=== PATIENT | male | born 1995 | race Caucasian/White ===

== ENCOUNTER 2016-06-20 12:33 | Emergency (ER) | payer SELFPAY ==
[2016-06-24] MEDS ORDERED: PERCOCET 5-3251 TAB PO (11:00)
[2016-06-24] MEDS ORDERED: HYDROCODONE-APA1 TAB PO (11:01)
[2016-06-25 13:57] VITALS: BMI 23.6
== END 2016-06-20 15:30 | disposition home or self-care (01) ==
LOC: D.ER 12:33
DX: S52.502A Unspecified fracture of the lower end of left radius, initial encounter for closed fracture (principal); W19.XXXA Unspecified fall, initial encounter; Y93.89 Activity, other specified; Y92.89 Other specified places as the place of occurrence of the external cause; R11.2 Nausea with vomiting, unspecified

== ENCOUNTER 2016-06-25 05:42 | Day surgery (SDC) | payer SELFPAY ==
[~2016-06-25] VITALS: Ht 175.3 cm; Wt 72.6 kg
--- NOTE | ~2016-06-25 | OP ---
PATIENT NAME: LAW MAGAÑA MEDICAL RECORD: [id number] :89 [facility]ATION:[facility] ADMISSION DATE: SURGEON: LUH BOWLING MD DATE OF OPERATION: 06/25/2016 PREOPERATIVE DIAGNOSIS: Left distal radius fracture -- volar Santos's. POSTOPERATIVE DIAGNOSIS: Left distal radius fracture -- volar Santos's. PROCEDURE: Open reduction and internal fixation of left wrist. SURGEON: Luh Bowling MD. ANESTHESIA: General. INTRAOPERATIVE COMPLICATIONS: None. SUMMARY OF PATHOLOGIC FINDINGS: The patient had an intra-articular split of the volar Santos's fracture that was well suited for a volar plate. OPERATIVE SUMMARY IN DETAIL: After obtaining the appropriate preoperative orthopedic surgery consents as well as anesthetic consultation, evaluation and clearance, the patient was brought to the operating room and placed on the operating table in supine position. After adequate general laryngeal mask airway was administered, tourniquet was placed about the proximal aspect of the right upper extremity. Right upper extremity was then prepped and draped in routine sterile fashion. The arm was elevated and exsanguinated, tourniquet inflated to 250 mmHg. Volar approach of Agus was utilized in a curvilinear fashion. Dissection was carried down to the flexor carpal radialis and then gentle dissection was carried down. The median nerve was identified and the carpal tunnel in its entirety was released for good exposure and release of potential nerve entrapment. Dissection was carried down to the actual distal radius itself. Reduction maneuver was performed. A volar plate from Michael was then applied. Serial and sequential drill and fill was done under fluoroscopic guidance resulting in anatomic holiness of the distal radius. Having completed this, the wound was copiously irrigated and closed using #1 Vicryl followed by 4-0 Prolene in running fashion. Sterile dressings were applied. The patient was awakened and taken to the recovery room in stable condition. All final needle and sponge counts were correct. TRANSINT:[id number] Voice Confirmation ID: [id number] DOCUMENT ID: [id number] LUH BOWLING MD CC: [id number] DICTATION DATE: 07/06/16[address]25 ST[address] LIGHT CLEANER: 07/07/16 0205 [facility] 06/25/16 [id number] [place] [address]
[~2016-06-25 05:42] MED LIST: HYDROCODONE-APA1 TAB PO; PERCOCET 5-3251 TAB PO
[2016-06-25 13:57] VITALS: BP 133/58; Ht 175.3 cm; Wt 72.6 kg
[2016-06-25] MEDS ORDERED: PERCOCET 10/3251 TA1 PO (16:08)
== END 2016-06-25 17:45 | disposition home or self-care (01) ==
LOC: D.OPS 05:42 → D.PAN 14:00 → D.OPS 14:00
DX: S52.562A Barton's fracture of left radius, initial encounter for closed fracture (principal)

== ENCOUNTER 2017-03-14 10:14 | Emergency (ER) | payer MEDICAID ==
[2016-06-25 13:57] VITALS: BMI 23.6
[~2017-03-14 10:14] MED LIST changes: +PERCOCET 10/3251 TA1 PO
== END 2017-03-14 12:36 | disposition home or self-care (01) ==
LOC: D.ER 10:14
DX: K52.9 Noninfective gastroenteritis and colitis, unspecified (principal); R11.10 Vomiting, unspecified

== ENCOUNTER 2018-01-15 17:35 | Emergency (ER) | payer MEDICAID ==
[~2018-01-15] VITALS: Ht 175.3 cm; Wt 75.0 kg
[2018-01-15 17:40] VITALS: Ht 175.3 cm; Wt 75.0 kg
[2018-01-15 18:31] LABS: APPEARANCE CLEAR (CLEAR); BILIRUBIN NEGATIVE (NEGATIVE); COLOR YELLOW (YELLOW); GLUCOSE NEGATIVE (NEGATIVE); KETONE LARGE mg/dL (NEGATIVE); NITRITE NEGATIVE (NEGATIVE); PROTEIN TRACE mg/dL (NEGATIVE); UROBILINOGEN NORMAL (NORMAL)
[2018-01-15 18:36] LABS: BASOPHILS 0.1 % (0-2); EOSINOPHILS 0 % (0-7); HEMATOCRIT 41.4 % (42.0-54.0); HEMOGLOBIN 15.4 g/dL (13.5-17.5); IMMATURE GRANULOCYTES 0.4 % (0-5); LYMPHOCYTES 5.6 % (15-50); MCH 32.4 pg (26.0-34.0); MCHC 37.2 g/dL (31.0-37.0); MCV 87.2 fL (80.0-100.0); MEAN PLATELET VOLUME 9.4 fL (7.4-10.4); MONOCYTES 5.6 % (2-11); NEUTROPHILS 88.3 % (40-80); PLATELET COUNT 213 10x3/uL (130-400); RBC 4.75 10x6/uL (4.20-6.10); WBC 16.6 10x3/uL (4.8-10.8)
[2018-01-15 18:48] LABS: ALBUMIN 4.5 g/dL (3.4-5.0); ALKALINE PHOSPHATASE 68 U/L (46-116); ALT (SGPT) 28 U/L (10-68); BILIRUBIN - TOTAL 0.86 mg/dL (0.2-1.3); CALC OSMOLALITY 278 mosm/kg (275-300); CALCIUM 9.4 mg/dL (8.5-10.1); CARBON DIOXIDE 20.6 mmol/L (21.0-32.0); CHLORIDE - SERUM 98 mmol/L (98-107); GLUCOSE 93 mg/dL (74-106); POTASSIUM - SERUM 4.7 mmol/L (3.5-5.1); PROTEIN - SERUM 7.7 g/dL (6.4-8.2); SODIUM 138 mmol/L (136-145); UREA NITROGEN 20 mg/dL (7-18); eGFR NON AFRICAN AMERICAN > 90 mL/min (90-120)
[2018-01-15 19:03] LABS: AMYLASE - SERUM 52 U/L (25-115); LIPASE 71 U/L (73-393)
[2018-01-15] MEDS ORDERED: PHENERGAN25 M1 PO (20:35)
[2018-01-15] MEDS ORDERED: DOXYCYCLINE HY100 M2 PO (20:49)
[2018-01-15 21:31] VITALS: BP 128/89
== END 2018-01-15 21:31 | disposition home or self-care (01) ==
LOC: D.ER 17:35
PROVIDERS: Emergency Medicine
DX: K52.9 Noninfective gastroenteritis and colitis, unspecified (principal); F17.200 Nicotine dependence, unspecified, uncomplicated

== ENCOUNTER 2019-03-06 11:54 | Emergency (ER) | payer MEDICAID ==
[~2019-03-06] VITALS: Ht 175.3 cm; Wt 68.2 kg
[~2019-03-06 11:54] MED LIST changes: +DOXYCYCLINE HY100 M2 PO; +PHENERGAN25 M1 PO
[2019-03-06 12:08] VITALS: Ht 175.3 cm; Wt 68.2 kg
[2019-03-06 12:41] LABS: HEMATOCRIT 44.4 % (42.0-54.0); HEMOGLOBIN 16.4 g/dL (13.5-17.5); MCH 31.9 pg (26.0-34.0); MCHC 36.9 g/dL (31.0-37.0); MCV 86.4 fL (80.0-100.0); MEAN PLATELET VOLUME 9.1 fL (7.4-10.4); PLATELET COUNT 228 10x3/uL (130-400); RBC 5.14 10x6/uL (4.20-6.10); RDW 11.7 % (11.5-14.5); WBC 20.8 10x3/uL (4.8-10.8)
[2019-03-06 12:52] LABS: CALC OSMOLALITY 289 mosm/kg (275-300); CALCIUM 9.6 mg/dL (8.5-10.1); CHLORIDE - SERUM 102 mmol/L (98-107); CREATININE - SERUM 1.1 mg/dL (0.6-1.3); GLUCOSE 78 mg/dL (74-106); POTASSIUM - SERUM 3.9 mmol/L (3.5-5.1); SODIUM 144 mmol/L (136-145); UREA NITROGEN 25 mg/dL (7-18); eGFR NON AFRICAN AMERICAN 88 mL/min (90-120)
[2019-03-06 12:57] LABS: ALKALINE PHOSPHATASE 69 U/L (46-116); ALT (SGPT) 28 U/L (10-68); AMYLASE - SERUM 68 U/L (25-115); BILIRUBIN - TOTAL 0.61 mg/dL (0.2-1.3); LIPASE 114 U/L (73-393); PROTEIN - SERUM 7.7 g/dL (6.4-8.2); TROPONIN-I < 0.017 ng/mL (0.000-0.060)
[2019-03-06 13:45] LABS: LYMPHOCYTES 12 % (15-50); MONOCYTES 8 % (2-11); NEUTROPHILS 78 % (40-80); PLATELET ESTIMATE NORMAL
[2019-03-06 14:39] LABS: APPEARANCE CLEAR (CLEAR); BILIRUBIN NEGATIVE (NEGATIVE); COLOR YELLOW (YELLOW); GLUCOSE NEGATIVE (NEGATIVE); KETONE LARGE mg/dL (NEGATIVE); NITRITE NEGATIVE (NEGATIVE); PROTEIN NEGATIVE (NEGATIVE); SPECIFIC GRAVITY 1.025 (1.005-1.020); UROBILINOGEN NORMAL (NORMAL)
[2019-03-06] MEDS ORDERED: ONDANSETRON ODT8 MG PO (15:36)
[2019-03-06 16:29] VITALS: BP 110/69
[2019-03-06 16:45] LABS: UDS - AMPHET NEGATIVE QUAL (NEGATIVE); UDS - BARB NEGATIVE QUAL (NEGATIVE); UDS - BENZO NEGATIVE QUAL (NEGATIVE); UDS - COCAINE NEGATIVE QUAL (NEGATIVE); UDS - OPIATE NEGATIVE QUAL (NEGATIVE); UDS - PCP NEGATIVE QUAL (NEGATIVE); UDS - THC POSITIVE QUAL (NEGATIVE)
== END 2019-03-06 16:30 | disposition home or self-care (01) ==
LOC: D.ER 11:54
PROVIDERS: Family Medicine
DX: R10.9 Unspecified abdominal pain (principal); J45.909 Unspecified asthma, uncomplicated; F17.210 Nicotine dependence, cigarettes, uncomplicated